=== PATIENT | female | born 1995 | race Two or more races ===

== ENCOUNTER 2017-03-11 10:00 | Inpatient (IN) | payer SELFPAY ==
[2017-03-11] MEDS ORDERED: NS 100 ML IV 100 ML IV ONE (10:08)
[2017-03-11] MEDS ORDERED: D5 1/2 NS 1000 ML 1,000 ML IV ONE (10:08)
[2017-03-11] MEDS ORDERED: PITOCIN ONE (10:08)
[2017-03-11] MEDS ORDERED: D5 1/2 NS 1000ML W PITOCIN 20 U/L 1,000 ML IV ONE (10:08)
[2017-03-11] MEDS ORDERED: AMPICILLIN VIAL 2 GM ONE (10:08)
[2017-03-11] MEDS ORDERED: REGLAN INJ 10 MG VIAL IVP PRN ×2 (10:18→12:21)
[2017-03-11] MEDS ORDERED: NUBAIN INJ 200 MG VIAL MULTIDOSE IVP PRN (10:18)
[2017-03-11] MEDS ORDERED: PHENERGAN INJ 25 MG IV PRN ×3 (10:18→12:21)
[2017-03-11] MEDS ORDERED: DILAUDID INJ IVP PRN (10:18)
[2017-03-11] MEDS ORDERED: PITOCIN IVP ONE (10:18)
[2017-03-11 10:19] VITALS: BMI 25.4
[2017-03-11] MEDS ORDERED: D5 1/2 NS 1000 ML 1,000 ML IV SCH (11:00)
[2017-03-11] MEDS ORDERED: AMPICILLIN VIAL 2 GM 2 GM in NS 100 ML IV + SPIKE MINIBAG* 100 ML IV SCH (11:00)
--- NOTE | 2017-03-11 11:04 | DR.OB ---
OB Quick Note - Assessment/Plan Assessment/Plan: Delivery Note ADJUNCT NURSING FACULTY 03/11/17 at 11:00am Patient complete and pushing. Head delivered over intact perineum. No nuchal cord. Nose and mouth bulb suctioned. Body delivered over intact perineum. Cord clamped x 2 and cut. Infant handed to attendant. Cord sent for gases. Placenta delivered spontaneously / intact / 3 vessel cord. No CVX / vaginal / perineal tears. Viable female infant, VTX/OA, wt=7'14" and 9/10, stable to NBN. Mother stable to RR. XIB=[id number].
[2017-03-11] MEDS ORDERED: MOTRIN TAB 800 MG PO PRN ×2 (11:05→12:21)
[2017-03-11 11:06] LABS: BLOOD UREA NITROGEN 8 mg/dL (7-18); CALCIUM 7.9 mg/dL (8.5-10.1); CARBON DIOXIDE 18.4 mmol/L (21-32); CHLORIDE 102 mmol/L (98-107); CREATININE 0.68 mg/dL (0.55-1.02); GLUCOSE 86 mg/dL (65-99); SODIUM 135 mmol/L (136-145); eGFR BLACK RACES > 60 (>60); eGFR NON BLACK RACES > 60 (>60)
[2017-03-11 11:09] LABS: BASOPHILS % (AUTO) 0.3 % (0.2-1.0); EOSINOPHILS # (AUTO) 0.4 x10^3/uL (0.0-0.2); EOSINOPHILS % (AUTO) 3.7 % (0.9-2.9); HEMATOCRIT 31.5 % (36.0-47.0); HEMOGLOBIN 10.2 g/dL (12.0-16.0); LYMPHOCYTES # (AUTO) 1.8 X10^3/uL (1.3-2.9); LYMPHOCYTES % (AUTO) 15.8 % (21.0-51.0); MEAN CORPUSCULAR HEMOGLOBIN 24.3 pg (27.0-34.0); MEAN CORPUSCULAR HGB CONC 32.5 g/dL (33.0-35.0); MEAN CORPUSCULAR VOLUME 74.7 fL (80.0-100.0); MEAN PLATELET VOLUME 9.2 fL (7.4-11.0); MONOCYTES # (AUTO) 0.4 x10^3/uL (0.3-0.8); MONOCYTES % (AUTO) 3.7 % (0.0-13.0); NEUTROPHILS % (AUTO) 76.5 % (42.0-75.0); PLATELET COUNT 210 X10^3/uL (150.0-450.0); RED BLOOD COUNT 4.21 X10^6/uL (3.5-5.4); RED CELL DISTRIBUTION WIDTH 15.4 % (11.6-16.5); WHITE BLOOD COUNT 11.7 X10^3/uL (3.6-10.0)
[2017-03-11 11:43] LABS: MICROCYTOSIS 1+; PLATELET MORPHOLOGY COMMENT NORMAL (NORMAL)
[2017-03-11 11:54] LABS: AMNISURE ROM TEST NO MEMBRANES RUPTURE (NO RUPTURE)
[2017-03-11] MEDS ORDERED: D5 1/2 NS 1000 ML 1,000 ML with PITOCIN 20 UNITS IV SCH ×2 (12:00)
[2017-03-11] MEDS ORDERED: DERMOPLAST SPRAY TOP PRN (12:21)
[2017-03-11] MEDS ORDERED: MILK OF MAGNESIA PO PRN (12:21)
[2017-03-11] MEDS ORDERED: ADACEL TDaP IM ONE ×2 (12:21→21:06)
[2017-03-11] MEDS ORDERED: AMBIEN PO PRN (12:21)
[2017-03-11 12:29] LABS: BILIRUBIN,URINE NEGATIVE (NEGATIVE); BLOOD/HEMOGLOBIN,URINE 4+ (NEGATIVE); GLUCOSE, URINE NEGATIVE (NEGATIVE); KETONES,URINE 1+ (NEGATIVE); LEUKOCYTE ESTERASE ,URINE 3+ (NEGATIVE); NITRITES,URINE NEGATIVE (NEGATIVE); PROTEIN,URINE 2+ (NEGATIVE); UROBILINOGEN,URINE NORMAL (NORMAL)
[2017-03-11 12:32] LABS: APPEARANCE,URINE HAZY (CLEAR); COLOR,URINE YELLOW (YELLOW)
[2017-03-11] MEDS ORDERED: AMPICILLIN VIAL 1 GM 1 GM in NS 50 ML IV + SPIKE MINIBAG* 50 ML IV SCH (14:21)
[2017-03-11] MEDS: ZANTAC PO SCH (21:35)
[2017-03-12] MEDS: D5 1/2 NS 1000 ML 1,000 ML with PITOCIN 20 UNITS IV SCH ×4 (05:32→20:37)
[2017-03-12 06:09] LABS: HEMATOCRIT 26.4 % (36.0-47.0); HEMOGLOBIN 8.8 g/dL (12.0-16.0)
[2017-03-12] MEDS: PRENATAL PLUS PO SCH (09:14)
[2017-03-12] MEDS: FERROUS SULFATE PO SCH ×2 (09:15→19:00)
[2017-03-12] MEDS: ZANTAC PO SCH ×2 (09:16→20:35)
[2017-03-13] MEDS: D5 1/2 NS 1000 ML 1,000 ML with PITOCIN 20 UNITS IV SCH ×2 (06:14)
[2017-03-13] MEDS: ZANTAC PO SCH (09:29)
[2017-03-13] MEDS: FERROUS SULFATE PO SCH (09:29)
[2017-03-13] MEDS: PRENATAL PLUS PO SCH (09:29)
[2017-03-13 13:16] VITALS: BP 110/56
== END 2017-03-13 15:35 | disposition home or self-care (01) | DRG 775 ==
LOC: ER 10:00 → LD 10:08 → MED/SURG 12:23
PROVIDERS: ADMIT Specialist; ATTEND Obstetrics & Gynecology Obstetrics
PROC: 10E0XZZ Delivery of Products of Conception, External Approach (ICD-10-PCS; principal; 2017-03-11)
PROC: 3E0234Z Introduction of Serum, Toxoid and Vaccine into Muscle, Percutaneous Approach (ICD-10-PCS; 2017-03-11)
DX: O99.824 Streptococcus B carrier state complicating childbirth (principal); Z37.0 Single live birth; O09.33 Supervision of pregnancy with insufficient antenatal care, third trimester; Z3A.38 38 weeks gestation of pregnancy; Z23 Encounter for immunization
CPT/HCPCS: 36415; 59409; 80048; 81003; 83020; 84112; 85014; 85018; 85025; 86592; 86701; 86850; 86900; 86901; 96365; 99284; A4216; A4222; S0197; J0290; J2590; J7042